=== PATIENT | male | born 1975 | race African-American/Black ===

== ENCOUNTER 2017-12-12 21:25 | Emergency (ER) | payer MEDICAID ==
[~2017-12-12] VITALS: Ht 182.9 cm; Wt 165.0 kg
[2017-12-12] MEDS ORDERED: AZITHROMYCIN 250 MG TABLET PO ONE (23:45)
[2017-12-12] MEDS ORDERED: CEFTRIAXONE SODIUM 250 MG/VIAL IM ONE (23:45)
[2017-12-13 00:07] VITALS: BP 156/103
[2017-12-15 04:17] LABS: CHLAMYDIA TRACHOMATIS NAA Positive (Negative); NEISSERIA GONORRHOEAE NAA Negative (Negative)
== END 2017-12-13 00:08 | disposition home or self-care (01) ==
LOC: ER 21:25
DX: A56.8 Sexually transmitted chlamydial infection of other sites (principal); R03.0 Elevated blood-pressure reading, without diagnosis of hypertension; F17.210 Nicotine dependence, cigarettes, uncomplicated; E66.9 Obesity, unspecified; Z68.42 Body mass index [BMI] 45.0-49.9, adult
CPT/HCPCS: 87491; 87591; 96372; 99284; J0696; 99283

== ENCOUNTER 2018-04-08 11:39 | Emergency (ER) | payer MEDICAID ==
[~2018-04-08] VITALS: Ht 182.9 cm; Wt 179.0 kg
[2018-04-08] MEDS ORDERED: AZITHROMYCIN 500 MG TABLET PO ONE (14:15)
[2018-04-08] MEDS ORDERED: CEFTRIAXONE SODIUM 250 MG/VIAL IM ONE (14:15)
[2018-04-08 14:54] LABS: CLARITY URINE CLEAR (CLEAR); COLOR URINE YELLOW (YELLOW); KETONES URINE NEGATIVE (NEGATIVE); LEUKOCYTE ESTERASE URINE NEGATIVE (NEGATIVE); NITRITE URINE NEGATIVE (NEGATIVE); OCCULT BLOOD URINE NEGATIVE (NEGATIVE); PH URINE 5.5 (4.5-8.0); PROTEIN URINE NEGATIVE (NEGATIVE); SPECIFIC GRAVITY URINE 1.022 (1.005-1.030); UROBILINOGEN URINE 0.2 E.U./dL (0.2-1.0)
[2018-04-08 15:00] VITALS: BP 148/98
[2018-04-10 13:07] LABS: HIV SCREEN 4G Non Reactive (Non Reactive)
== END 2018-04-08 16:06 | disposition home or self-care (01) ==
LOC: ER 12:15
DX: B34.9 Viral infection, unspecified (principal); H10.9 Unspecified conjunctivitis; R03.0 Elevated blood-pressure reading, without diagnosis of hypertension
CPT/HCPCS: 71045; 81003; 86592; 87389; 96372; 99284; J0696